=== PATIENT | male | born 1985 | race Caucasian/White ===

== ENCOUNTER 2017-08-29 22:49 | Emergency (ER) | payer BC ==
--- NOTE | 2017-08-29 23:10 | ERPHSYRPT ---
- History of Present Illness Time Seen by Provider: 08/29/17 22:52 Source: patient, police Exam Limitations: no limitations Patient Subjective Stated Complaint: Psychiatric Evaluation, hallucinations. Triage Nursing Assessment: Pt presents to the ED with police stating pt was hallucating, stating the pt was stating there were "gypsies" and "hobos" by the train tracks trying to maik his neighbor. Police states no people were at the scene other than the pt. Pt denies hallucinations, denies drug use, denies pain or other complaints. Pt states hx of benzo use and states he is not currently taking medications. Pt denies SI or HI. Physician History: PT WAS BROUGHT IN ACCOMPANIED BY POLICE WHO STATED PT WAS TALKING TO HIMSELF STATING THERE WERE GYPSIES AND HOBOS BY THE TRACKS BUT THERE WAS NOBODY THERE. PT STATES HE HAS BEEN TIRED AND STRESSED OUT FOR THE PAST 3 MONTHS WITH OCCASIONAL NAUSEA AND HAS WINTER DEPRESSION. PT DENIES CHEST PAIN, SHORTNESS OF AIR, FEVER, SUICIDAL IDEATION, HOMICIDAL IDEATION, ABDOMINAL PAIN. LAST METHAMPHETAMINE USE WAS TODAY. Allergies/Adverse Reactions: No Known Drug Allergies Allergy (Unverified 05/29/13 17:50) Home Medications: No Home Meds [No Home Meds] 1 ea MC UD 05/29/13 [History] Hx Tetanus, Diphtheria Vaccination/Date Given: No Hx Influenza Vaccination/Date Given: No Hx Pneumococcal Vaccination/Date Given: No Immunizations Up to Date: No - Review of Systems Constitutional: Fatigue Respiratory: No Dyspnea Cardiac: No Chest Pain Abdominal/Gastrointestinal: Nausea, No Abdominal Pain Psychological: Anxiety, Depression All Other Systems: Reviewed and Negative - Past Medical History Pertinent Past Medical History: Yes Neurological History: No Pertinent History ENT History: No Pertinent History Cardiac History: No Pertinent History Respiratory History: No Pertinent History Endocrine Medical History: No Pertinent History Musculoskeletal History: Fractures GI Medical History: No Pertinent History History: No Pertinent History Psycho-Social History: Anxiety, Depression, Panic Disorder Male Reproductive Disorders: No Pertinent History - Past Surgical History Past Surgical History: Yes Musculoskeletal: Orthopedic Surgery Other Surgical History: right thumb, shoulder rotator cuff, - Social History Smoking Status: Never smoker Exposure to second hand smoke: Yes Alcohol Use: Socially Drug Use: methamphetamines, other Patient Lives Alone: No Significant Family History: no pertinent family hx - Nursing Vital Signs Nursing Vital Signs: Initial Vital Signs Pulse Rate 106 H 08/29/17 22:52 Respiratory Rate 16 08/29/17 22:52 Blood Pressure 167/118 08/29/17 22:52 O2 Sat by Pulse Oximetry 99 08/29/17 22:52 Pain Scale Pain Intensity 0 - Physical Exam General Appearance: alert, anxiety Eye Exam: PERRL/EOMI Ears, Nose, Throat Exam: pharynx normal, moist mucous membranes Neck Exam: normal inspection Respiratory Exam: lungs clear Cardiovascular Exam: normal heart sounds Gastrointestinal/Abdomen Exam: soft, normal bowel sounds Back Exam: normal range of motion Extremity Exam: normal inspection, No pedal edema Neurologic Exam: alert, oriented x 3, cooperative, other (ANXIOUS) Skin Exam: warm, dry SpO2 Interpretation: normal SpO2: 99 Oxygen Delivery: Room Air - Course Nursing assessment & vital signs reviewed: Yes Ordered Tests: Active Orders 24 hr Category Date Time Status Psychiatric Evaluation STAT Care 08/29/17 23:14 Active ACETAMINOPHEN Stat Lab 08/29/17 23:20 Completed CBC W DIFF Stat Lab 08/29/17 23:20 Completed CMP Stat Lab 08/29/17 23:20 Completed ETHYL ALCOHOL Stat Lab 08/29/17 23:20 Completed MAG [MAGNESIUM] Stat Lab 08/29/17 23:20 Completed SALICYLATE Stat Lab 08/29/17 23:20 Completed UA W/RFX UR CULTURE Stat Lab 08/29/17 23:14 Completed Urine Triage Profile Stat Lab 08/29/17 23:14 Results Lab/Rad Data: Laboratory Result Diagrams 08/29/17 23:20 08/29/17 23:20 Laboratory Results 08/29/17 08/29/17 08/29/17 Range/Units 23:20 23:20 23:20 WBC 11.6 H (4.0-10.5) K/mm3 RBC 5.92 H (4.1-5.6) M/mm3 Hgb 18.0 (12.5-18.0) gm/dl Hct 52.3 H (42-50) % MCV 88.3 (78-100) fl MCH 30.4 (26-32) pg MCHC 34.4 (32-36) g/dl RDW 13.1 (11.5-14.0) % Plt Count 187 (150-450) K/mm3 MPV 10.7 H (6-9.5) fl Gran % 67.7 H (36.0-66.0) % Lymphocytes % 21.8 L (24.0-44.0) % Monocytes % 9.9 (0.0-12.0) % Eosinophils % 0.3 (0.00-5.0) % Basophils % 0.3 (0.0-0.4) % Basophils # 0.04 (0-0.4) Sodium 142 (137-145) mmol/L Potassium 4.1 (3.5-5.1) mmol/L Chloride 101 (98-107) mEq/L Carbon Dioxide 29 (22-30) mmol/L Anion Gap 15.4 H (5-15) MEQ/L BUN 21 H (9-20) mg/dl Creatinine 1.23 (0.66-1.25) mg/dl Estimated GFR > 60 ML/MIN Glucose 100 (74-106) mg/dL Calcium 9.9 (8.4-10.2) mg/dL Magnesium 2.1 (1.6-2.3) mg/dL Total Bilirubin 0.70 (0.2-1.3) mg/d? AST 25 (17-59) U/L ALT 46 (0-50) U/L Alkaline Phosphatase 72 (38-126) U/L Serum Total Protein 7.4 (6.3-8.2) mg/dl Albumin 4.4 (3.5-5.0) g/dl Ur Collection Type Urine Color (YELLOW) Urine Appearance (CLEAR) Urine pH (5-6) Ur Specific [place] (1.005-1.025) Urine Protein (Negative) Urine Ketones (NEGATIVE) Urine Blood (0-5) Brandon/ul Urine Nitrite (NEGATIVE) Urine Bilirubin (NEGATIVE) Urine Urobilinogen (0-1) mg/dL Ur Leukocyte Esterase (NEGATIVE) Urine Culture Reflexed (NO) Urine Glucose (NEGATIVE) mg/dL Salicylates < 1.0 L (2-20) mg/dL Urine Opiates Level (NEGATIVE) Ur Methadone (NEGATIVE) Acetaminophen < 10 L (10-30) ug/ml Urine Barbiturates (NEGATIVE) Ur Phencyclidine (PCP) (NEGATIVE) Urine Amphetamine U Benzodiazepine Level (NEGATIVE) Urine Cocaine (NEGATIVE) Urine Marijuana (THC) (NEGATIVE) Ethyl Alcohol < 10 L (10-50) MG/DL Specimen Received 08/29/17 08/29/17 Range/Units 23:14 23:14 WBC (4.0-10.5) K/mm3 RBC (4.1-5.6) M/mm3 Hgb (12.5-18.0) gm/dl Hct (42-50) % MCV (78-100) fl MCH (26-32) pg MCHC (32-36) g/dl RDW (11.5-14.0) % Plt Count (150-450) K/mm3 MPV (6-9.5) fl Gran % (36.0-66.0) % Lymphocytes % (24.0-44.0) % Monocytes % (0.0-12.0) % Eosinophils % (0.00-5.0) % Basophils % (0.0-0.4) % Basophils # (0-0.4) Sodium (137-145) mmol/L Potassium (3.5-5.1) mmol/L Chloride (98-107) mEq/L Carbon Dioxide (22-30) mmol/L Anion Gap (5-15) MEQ/L BUN (9-20) mg/dl Creatinine (0.66-1.25) mg/dl Estimated GFR ML/MIN Glucose (74-106) mg/dL Calcium (8.4-10.2) mg/dL Magnesium (1.6-2.3) mg/dL Total Bilirubin (0.2-1.3) mg/d? AST (17-59) U/L ALT (0-50) U/L Alkaline Phosphatase (38-126) U/L Serum Total Protein (6.3-8.2) mg/dl Albumin (3.5-5.0) g/dl Ur Collection Type CCMS Urine Color YELLOW (YELLOW) Urine Appearance CLEAR (CLEAR) Urine pH 5.0 (5-6) Ur Specific [place] 1.025 (1.005-1.025) Urine Protein NEGATIVE (Negative) Urine Ketones NEGATIVE (NEGATIVE) Urine Blood NEGATIVE (0-5) Brandon/ul Urine Nitrite NEGATIVE (NEGATIVE) Urine Bilirubin NEGATIVE (NEGATIVE) Urine Urobilinogen NORMAL (0-1) mg/dL Ur Leukocyte Esterase NEGATIVE (NEGATIVE) Urine Culture Reflexed NO (NO) Urine Glucose NEGATIVE (NEGATIVE) mg/dL Salicylates (2-20) mg/dL Urine Opiates Level NEGATIVE (NEGATIVE) Ur Methadone NEGATIVE (NEGATIVE) Acetaminophen (10-30) ug/ml Urine Barbiturates NEGATIVE (NEGATIVE) Ur Phencyclidine (PCP) NEGATIVE (NEGATIVE) Urine Amphetamine Pending U Benzodiazepine Level POSITIVE (NEGATIVE) Urine Cocaine NEGATIVE (NEGATIVE) Urine Marijuana (THC) NEGATIVE (NEGATIVE) Ethyl Alcohol (10-50) MG/DL Specimen Received 08-29-17 2330 - Departure Time of Disposition: 01:27 Departure Disposition: Home Clinical Impression: METHAMPHETAMINE USE, ANXIETY Condition: Stable Critical Care Time: No Referrals: DOUGIE PHELPS [Primary Care Provider] - Instructions: Drug Abuse and Drug Addiction (DC) Additional Instructions: FOLLOW UP WITH PRIVATE DOCTOR TOMORROW. DO NOT USE METHAMPHETAMINE.
[2017-08-29 23:22] LABS: BASOPHIL % 0.3 % (0.0-0.4); Basophil (Absolute #) 0.04 (0-0.4); Eosinophil % 0.3 % (0.00-5.0); Eosinophil (Absolute #) 0.03 (0-0.5); Granulocyte Absolute (ANC) 7.83 (1.4-6.9); Granulocytes % 67.7 % (36.0-66.0); Hematocrit 52.3 % (42-50); Lymphocyte (Absolute #) 2.52 (1.0-4.6); Lymphocytes % 21.8 % (24.0-44.0); Mean Cell Volume 88.3 fl (78-100); Mean Corpuscular Hemoglobin 30.4 pg (26-32); Mean Corpuscular Hgb Concent. 34.4 g/dl (32-36); Mean Platelet Volume 10.7 fl (6-9.5); Monocyte (Absolute #) 1.14 (0.0-1.3); Monocytes % 9.9 % (0.0-12.0); Platelet Count 187 K/mm3 (150-450); Red Blood Count 5.92 M/mm3 (4.1-5.6); Red Cell Distribution Width 13.1 % (11.5-14.0); White Blood Count 11.6 K/mm3 (4.0-10.5)
[2017-08-29 23:31] LABS: Barbiturate,Urine NEGATIVE (NEGATIVE); Benzodiazepine,Urine POSITIVE (NEGATIVE); Cocaine,Urine NEGATIVE (NEGATIVE); Methadone,Urine NEGATIVE (NEGATIVE); Opiate,Urine NEGATIVE (NEGATIVE); PCP,Urine NEGATIVE (NEGATIVE); THC,Urine NEGATIVE (NEGATIVE)
[2017-08-29 23:50] LABS: ACETAMINOPHEN < 10 ug/ml (10-30); ALBUMIN 4.4 g/dl (3.5-5.0); ALKALINE PHOSPHATASE 72 U/L (38-126); ANION GAP 15.4 MEQ/L (5-15); BLOOD UREA NITROGEN 21 mg/dl (9-20); CHLORIDE 101 mEq/L (98-107); Calcium 9.9 mg/dL (8.4-10.2); Carbon Dioxide 29 mmol/L (22-30); Creatinine 1 1.23 mg/dl (0.66-1.25); Glucose 100 mg/dL (74-106); Potassium 4.1 mmol/L (3.5-5.1); SALICYLATE < 1.0 mg/dL (2-20); SGOT/AST 25 U/L (17-59); SGPT/ALT 46 U/L (0-50); SODIUM 142 mmol/L (137-145); Total Protein 7.4 mg/dl (6.3-8.2)
[2017-08-29 23:51] LABS: ETHYL ALCOHOL < 10 MG/DL (10-50)
[2017-08-30 00:04] LABS: Appearance CLEAR (CLEAR); Bilirubin NEGATIVE (NEGATIVE); Blood NEGATIVE Ery/ul (0-5); Glucose NEGATIVE (NEGATIVE); Ketones NEGATIVE (NEGATIVE); Leukocyte Esterase NEGATIVE (NEGATIVE); Nitrite NEGATIVE (NEGATIVE); Protein,Urine Dip NEGATIVE (Negative); Specific Gravity 1.025 (1.005-1.025); Urobilinogen NORMAL mg/dL (0-1)
[2017-08-30 00:54] VITALS: BP 145/90; PULSE 96
[2017-08-30 01:22] VITALS: O2SAT 99
[2017-08-30] MEDS ORDERED: Valium 5 MG PO ONE (01:32)
[2017-08-30] MEDS ORDERED: Valium 5 MG ONE (01:34)
[2017-08-30 07:13] LABS: Amphetamine,Urine POSITIVE (NEGATIVE)
== END 2017-08-30 01:40 | disposition home or self-care (01) ==
LOC: ED 22:49
DX: F15.980 Other stimulant use, unspecified with stimulant-induced anxiety disorder (principal)
CPT/HCPCS: 36415; 80053; 80307; 81002; 83735; 85025; 99283; G0480; G0481; A9270-GY